=== PATIENT | female | born 1985 | race Caucasian/White ===

== ENCOUNTER 2017-11-09 14:55 | Emergency (ER) | payer OTHER ==
[~2017-11-09] VITALS: Ht 162.6 cm; Wt 52.2 kg
[2017-11-09 14:55] VITALS: BP 103/68
[2017-11-09] MEDS ORDERED: IBUPROFEN 600 MG TABLET PO ONE ×2 (15:30→15:32)
== END 2017-11-09 15:48 | disposition home or self-care (01) ==
LOC: ER 14:58
DX: B34.9 Viral infection, unspecified (principal)
CPT/HCPCS: 99282; A4606; Z7610

== ENCOUNTER 2018-01-31 02:55 | Emergency (ER) | payer OTHER ==
[~2018-01-31] VITALS: Ht 162.6 cm; Wt 50.8 kg
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
--- NOTE | 2018-01-31 03:56 | NUR ---
PT TO [facility] FOR XRAYS
[2018-01-31] MEDS ORDERED: HYDROCODONE/APAP 5/325MG 1 EACH TABLET PO ONE (04:00)
[2018-01-31] MEDS ORDERED: HYDROCODONE/APAP 5/325MG 1 EACH TABLET ONE (04:10)
[2018-01-31 04:36] VITALS: BP 113/77
== END 2018-01-31 04:36 | disposition home or self-care (01) ==
LOC: ER 02:59
DX: S13.4XXA Sprain of ligaments of cervical spine, initial encounter (principal); S83.91XA Sprain of unspecified site of right knee, initial encounter; S43.401A Unspecified sprain of right shoulder joint, initial encounter; Z60.2 Problems related to living alone; V49.49XA Driver injured in collision with other motor vehicles in traffic accident, initial encounter; Y93.89 Activity, other specified; Y92.89 Other specified places as the place of occurrence of the external cause; Y99.8 Other external cause status
CPT/HCPCS: 72050; 73030; 73564; 99284; A4606; Z7610